=== PATIENT | female | born 1985 | race Caucasian/White ===

== ENCOUNTER 2017-07-21 14:53 | Emergency (ER) | payer BC ==
--- NOTE | 2017-07-21 16:04 | UC ---
Respiratory Complaint HPI - HPI Summary HPI Summary: 32 yo female with one week hx of sinus pain and pressure no f/c cough /non productive low energy she has nasal polyps has refused surgery - History of Current Complaint Chief Complaint: UCRespiratory Stated Complaint: SINUSES,COUGH Time Seen by Provider: 07/21/17 15:58 Hx Obtained From: Patient Hx Last Menstrual Period: 07/18/17 Onset/Duration: Gradual Onset, Lasting Days - 7 Timing: Constant Severity Initially: Mild Severity Currently: Moderate Pain Intensity: 4 Pain Scale Used: 0-10 Numeric Character: Cough: Nonproductive Alleviating Factors: Nothing Associated Signs And Symptoms: Positive: Negative, Nasal Congestion, Hoarseness , Sinus Discomfort - Allergies/Home Medications Allergies/Adverse Reactions: Allergies Allergy/AdvReac Type Severity Reaction Status Date / Time Ciprofloxacin [From Cipro] Allergy Hives Verified 07/21/17 15:18 Home Medications: Home Medications Levothyroxine TAB* [Synthroid TAB*] 125 mcg PO DAILY 07/21/17 [History Confirmed 07/21/17] Norethindr/Eth Estradiol(Nf) [Lo Loestrin Fe (NF)] 1 tab PO DAILY 07/21/17 [ History Confirmed 07/21/17] [id number] [Nyquil Severe Cold/Flu 5-6.25-10-325 mg/15Ml] 1 liq PO DAILY 07/21/17 [History Confirmed 07/21/17] Ranitidine HCl [Zantac] 150 mg PO DAILY 07/21/17 [History Confirmed 07/21/17] PMH/Surg Hx/FS 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 Masectomy/reconstruction for prevenative - Family History Known Family History: Positive: Hypertension, Other - Cowdens - Social History Alcohol Use: None Substance Use Type: None Smoking Status (MU): Never Smoked Tobacco Review of Systems Constitutional: Fatigue Skin: Negative Eyes: Negative ENT: Ear Ache, Nasal Discharge, Sinus Congestion, Sinus Pain/Tenderness Respiratory: Cough Cardiovascular: Negative Gastrointestinal: Negative Genitourinary: Negative Motor: Negative Neurovascular: Negative Musculoskeletal: Negative Neurological: Negative Psychological: Negative Is Patient Immunocompromised?: No All Other Systems Reviewed And Are Negative: Yes Physical Exam Triage Information Reviewed: Yes Appearance: Well-Appearing, No Pain Distress, Well-Nourished Vital Signs: Initial Vital Signs Temp 97.7 F 07/21/17 15:14 Pulse 96 07/21/17 15:14 Resp 16 07/21/17 15:14 BP 104/71 07/21/17 15:14 Pulse Ox 100 07/21/17 15:14 Vital Signs Reviewed: Yes Eyes: Positive: Conjunctiva Clear ENT: Positive: Hearing grossly normal, Nasal congestion, Nasal drainage, TMs normal, Sinus tenderness, Uvula midline. Negative: Dental tenderness Neck: Positive: Supple, Nontender, No Lymphadenopathy Respiratory: Positive: Lungs clear, Normal breath sounds, No respiratory distress Cardiovascular: Positive: RRR, No Murmur Musculoskeletal: Positive: ROM Intact, No Edema Neurological: Positive: Alert Psychological Exam: Normal Skin Exam: Normal UC Diagnostic Evaluation - Laboratory O2 Sat by Pulse Oximetry: 100 - normal/not hypoxic Respiratory Course/Dx - Differential Dx/Diagnosis Provider Diagnoses: acute sinusitis Discharge - Discharge Plan Condition: Stable Disposition: HOME Prescriptions: Amoxicillin PO (*) [Amoxicillin 875 MG (*)] 875 mg PO BID #20 tab Patient Education Materials: Sinusitis (ED), Warm Compress or Soak (ED) Additional Instructions: recheck early next week if not better
== END 2017-07-21 16:10 | disposition home or self-care (01) ==
LOC: UCCORT 14:53
DX: J01.90 Acute sinusitis, unspecified (principal); R05 Cough; Q85.8 Other phakomatoses, not elsewhere classified; Z88.1 Allergy status to other antibiotic agents
CPT/HCPCS: 99202; G0463